=== PATIENT | female | born 1995 | race Caucasian/White ===

== ENCOUNTER 2016-10-12 22:49 | Emergency (ER) | payer OTHER ==
[~2016-10-12] VITALS: Ht 165.1 cm; Wt 65.3 kg
[2016-10-12 22:51] VITALS: TEMP 36.5; Ht 165.1 cm; Wt 65.3 kg
[2016-10-12] MEDS ORDERED: OXYCODONE HCL IR 5 MG TAB (IMMEDIATE RELEASE) PO STA (23:09)
[2016-10-12] MEDS ORDERED: LIDO/EPINEPHRINE/SOD BICARB 20 ML VIAL INFIL ONE (23:15)
[2016-10-12] MEDS ORDERED: OXYCODONE IR HOME PACK PO ONE (23:15)
[2016-10-12] MEDS ORDERED: OXYC1TAB3 PO (23:26)
--- NOTE | 2016-10-12 23:27 | EMERGENCY ROOM VISIT NOTE ---
ED Visit Note First contact with patient: 22:58 CHIEF COMPLAINT: Infected cyst on tailbone times one day HISTORY OF PRESENT ILLNESS: Patient is a healthy 21-year-old white female who presents emergency department for evaluation of a pilonidal cyst abscess. She began to notice some soreness in the tailbone about a week ago, states it felt more like a bruise, despite lack of trauma. Yesterday her pain markedly increased. She went to [facility] today and was told that she had an abscess. She was placed on Bactroban ointment and Bactrim orally. She has been using Tylenol for pain. Her symptoms are steadily worsening. She rates her pain a 6/ 10. There has been no injury to the area and no drainage. The patient denies fever, chills, or loss of appetite. REVIEW OF SYSTEMS: Review of systems as per HPI. All other systems reviewed were negative. At least 6 systems reviewed. PMH: Electronic medical records are reviewed and summarized as above/below. See Problem List. SOCIAL HISTORY: Patient is a college student from [place] who lives in an apartment with roommates. She does not smoke. PHYSICAL EXAM: Vital Signs: Reviewed Nurse's notes. CONSTITUTIONAL: Patient is uncomfortable appearing 21-year-old white female who is awake and alert and in no acute distress. INTEGUMENTARY: There is an erythematous, fluctuant, tender swelling at the top of the gluteal crease, left side. There is no pointing. It feels like a typical subcutaneous abscess. The perirectal and perianal areas are spared. EMERGENCY DEPARTMENT COURSE: The patient was medicated with oxycodone 10 mg orally. After saline and Betadine cleansing and lidocaine anesthesia, the abscess was incised with a number 11 scalpel blade. A large amount of foul- smelling purulent material drained and more was expressed by pressure. Culture was obtained and is pending. The abscess cavity was then irrigated copiously with normal saline solution, and probed for loculations. Plain gauze gauze that had been dipped in Betadine was used as a drain and a dressing was applied. Patient tolerated the procedure well. She will continue the Bactrim that was previously prescribed pending the urine culture. She was given oxycodone to use for pain. Wound care measures were discussed. She was advised that she could return to the emergency department in 48 hours for packing removal and wound recheck. Abscess is consistent with a pilonidal cyst abscess, and does not involve the perirectal or perianal area. Current/Historical Medications Scheduled PRN Oxycodone Immediate Rel Tab (Roxicodone Ir), 1-2 TAB PO Q4H PRN for Severe Pain Allergies Coded Allergies: No Known Allergies (Unverified , 10/12/16) Vital Signs Date Time Temp Pulse Resp B/P (MAP) Pulse Ox O2 Delivery O2 Flow Rate FiO2 10/12/16 22:51 36.5 88 18 132/85 98 Room Air Medications Administered Medications (Trade) Dose Ordered Sig/Cornelius Route Start Time Stop Time Status Last Admin Dose Admin Oxycodone HCl (Roxicodone Immediate Rel Tab) 10 mg NOW STAT PO 10/12/16 23:09 10/12/16 23:12 DC 10/12/16 23:17 10 MG Departure Information Impression Primary Impression: Pilonidal cyst with abscess Prescriptions Oxycodone Immediate Rel Tab (ROXICODONE IR) 5 Mg Tab 1-2 TAB PO Q4H Y for Severe Pain, #20 TAB For Initial Treatment Prov: Sol Hastings PA 10/12/16 Referrals No Doctor, Assigned (PCP) Patient Instructions My [facility] Additional Instructions DO NOT drive, drink alcohol, operate machinery, or perform dangerous activities today. You were given medications in the ER that can affect your ability to safely function or operate a vehicle. Oxycodone (OxyIR) 5mg: Take 1-2 pills every four hours for breakthrough pain. Avoid alcohol, operating machinery or dangerous equipment, working on ladders or roofs, DRIVING, or situations where being under the influence may be dangerous. It is recommended to use an [id number] stool softener such as Colace, 100mg twice daily while taking this medication to avoid constipation. Take antibiotics as prescribed. Ibuprofen(Motrin, Advil) may be used for fever or pain. Use 600mg every six hours as needed. Take with food. Avoid using more than 2400mg in a 24 hour period. Do not use 2400mg per day for more than three consecutive days without physician direction. Prolonged inappropriate use can lead to stomach upset or ulcers. (AND/OR) Acetaminophen(Tylenol) may be used for fever or pain. Use 1000mg every six hours as needed. Avoid using more than 3000mg in a 24 hour period. Warm compresses to the affected area 4 times daily for 15-20 minutes. Dressing changes daily, more often if it becomes saturated or soiled. May shower. Be careful to not accidentally removed the packing while bathing or when performing dressing changes. Rest and drink plenty of fluids. Continue current medications. Return to the ER in 48 hours for packing removal, immediately for severe pain, persistent fevers, spreading redness, or any worsening of your condition. Follow up with [facility] within 2-3 days for a recheck of the current condition.
[2016-10-13 00:18] VITALS: BP 127/86; PULSE 84; O2SAT 99
== END 2016-10-13 00:19 | disposition home or self-care (01) ==
LOC: C.EDB 22:51 → C.EDA 10-13 00:19
DX: L05.01 Pilonidal cyst with abscess (principal)

== ENCOUNTER 2016-10-14 18:51 | Emergency (ER) | payer OTHER ==
[~2016-10-14] VITALS: Ht 165.1 cm; Wt 66.0 kg
[~2016-10-14 18:51] MED LIST: OXYC1TAB3 PO
[2016-10-14 18:56] VITALS: TEMP 36.8; Ht 165.1 cm; Wt 66.0 kg
[2016-10-14 19:16] VITALS: BP 145/83; PULSE 77; O2SAT 99
--- NOTE | 2016-10-15 14:26 | EMERGENCY ROOM VISIT NOTE ---
History First contact with patient: 18:58 Chief Complaint: PACKING REMOVAL Stated Complaint: PACKING REMOVAL FROM [facility] Nursing Triage Summary: Pilonidal cyst drained on Wednesday. Here for packing removal History of Present Illness The patient is a 21 year old female who presents to the Emergency Room for packing removal after drainage of pilonidal abscess. The patient is currently on antibiotics that were provided by an urgent care clinic. She has been doing well since the time of the drainage and is without significant complaint. She has not had fever or chills. The area is still somewhat tender when she sits, however it is improved from the initial discomfort. She rates her current discomfort a 1/10. Review of Systems More than 6 systems were reviewed and otherwise negative with the exception of history of present illness. Past Medical/Surgical History Medical Problems: (1) No Known Active Medical Problems Family History No pertinent family history Social History Smoking Status: Never Smoker Occupation Status: [employer] student Current/Historical Medications Scheduled PRN Oxycodone Immediate Rel Tab (Roxicodone Ir), 1-2 TAB PO Q4H PRN for Severe Pain Allergies Coded Allergies: No Known Allergies (Unverified , 10/12/16) Physical Exam Vital Signs Date Time Temp Pulse Resp B/P (MAP) Pulse Ox O2 Delivery O2 Flow Rate FiO2 10/14/16 19:16 77 18 145/83 99 10/14/16 18:56 36.8 77 18 145/83 99 Room Air Pain Rating (0-10): 0 Physical Exam VITALS: Vitals are noted on the nurse's note and reviewed by myself. Vital signs stable. GENERAL: Well-developed, well-nourished, white female, who is in no acute distress and resting comfortably. Patient is cooperative with the examination. HEART: Regular rate and rhythm without murmurs gallops or rubs. LUNGS: Clear to auscultation bilaterally without wheezes, rales or rhonchi. No retractions or accessory muscle use. ABDOMEN: Positive normal bowel sounds x 4. Soft, nontender, without masses or organomegaly. No guarding or rebound tenderness. SKIN: The skin was with an incised pilonidal abscess at the superior aspect of the gluteal cleft. This is with scant bloody serous drainage. Packing is in place, and was removed. No significant abscess appears throughout this area. No gross cellulitis. Medical Decision & Procedures ED Course Physical exam and history were performed. Nursing notes, EMR, and Medication List were personally reviewed. Patient appears to have had a pilonidal abscess that was incised and drained. Cultures are still pending and the patient is to continue her antibiotics as previously prescribed. I did remove the packing and she did have some scant bloody serous drainage. I do not appreciate a worse abscess or significant infection otherwise. The patient will be okay to follow-up with her primary care physician for further care and management. She was otherwise invited back anytime and rated her discomfort a 1/10 at the time of departure. The chart was completed utilizing [employer] Voice Recognition Software. Grammatical errors, random word insertions, pronoun errors, and incomplete sentences are an occasional consequence of this system due to software limitations, ambient noise, and hardware issues. Any formal questions or concerns about the content, text, or information contained within the body of this dictation should be directly addressed to the provider for clarification. . Medical Decision Differential diagnosis includes, but is not limited to: Infection, abscess, cellulitis, packing removal, and others Impression Primary Impression: Encounter for removal of abscess packing Departure Information Dispostion Home / Self-Care Condition GOOD Forms HOME CARE DOCUMENTATION FORM, IMPORTANT VISIT INFORMATION Patient Instructions My [facility] Additional Instructions You were seen and evaluated today on an emergency basis only. This is not a substitute for, or an effort to provide, complete comprehensive medical care. It is not possible to recognize and treat all injuries or illnesses in a single emergency department visit. For this reason it is recommended that you followup with [facility] or your primary care physician if symptoms persist. Continue antibiotics as prescribed You are welcome to return to the emergency department anytime with new, worsening, or concerning symptoms.
== END 2016-10-14 19:17 | disposition home or self-care (01) ==
LOC: C.EDB 18:52 → C.EDD 19:17
DX: Z48.01 Encounter for change or removal of surgical wound dressing (principal)